=== PATIENT | female | born 1995 | race Caucasian/White ===

== ENCOUNTER 2021-03-26 10:19 | Inpatient (IN) ==
[2021-03-26] MEDS ORDERED: Famotidine 20 MG/2 ML VIAL IVP PRN (10:20)
[2021-03-26] MEDS ORDERED: Ondansetron 4 MG/2 ML VIAL IVP PRN ×2 (10:20→20:26)
[2021-03-26] MEDS ORDERED: Metoclopramide 10 MG/2 ML VIAL IVP PRN (10:20)
[2021-03-26] MEDS ORDERED: Naloxone 0.4 MG/ML INJ IVP PRN (10:20)
[2021-03-26] MEDS ORDERED: *HR* Nalbuphine 10 MG/ML AMPUL IV PRN (10:20)
[2021-03-26] MEDS ORDERED: Penicillin G Potassium 5,000,000 UNIT in 0.9 % Sodium Chloride Mini Bag 100 ML IVPB ONE (10:22)
[2021-03-26] MEDS ORDERED: Ringers Solution, Lactated 1,000 ML ONE (10:30)
[2021-03-26 10:58] LABS: Basophils % 0.2 %; Eosinophils # 0.1 K/mcL (0.0-0.6); Eosinophils % 0.3 %; Hemoglobin 11.4 g/dL (11.5-15.4); Immature Granulocytes % 0.7 % (0-4); Lymphocytes # 1.7 K/mcL (0.6-4.6); Lymphocytes % 9.5 %; Mean Corpuscular HGB Conc 32.6 g/dL (31.6-35.5); Mean Corpuscular Hemoglobin 27.9 pg (28.0-33.3); Mean Corpuscular Volume 85.6 fL (83.0-100.0); Mean Platelet Volume 10.5 fL (9.4-12.4); Monocytes # 1.2 K/mcL (0.0-1.3); Monocytes % 7.1 %; Neutrophils # 14.3 K/mcL (1.6-8.9); Platelet Count 254 K/mcL (140-400); Red Blood Count 4.09 M/mcL (3.82-4.97); Red Cell Distribution Width 14.3 % (11.5-14.5); Segmented Neutrophils % 82.2 %; White Blood Count 17.4 K/mcL (4.3-11.1)
[2021-03-26] MEDS: Ringers Solution, Lactated 1,000 ML IVC SCH ×2 (11:09→15:44)
[2021-03-26] MEDS ORDERED: EPHEDrine 50 MG/ML VIAL IVP PRN (12:11)
[2021-03-26] MEDS ORDERED: *HR* FentaNYL (PF) 100 MCG/2 ML VIAL EP ONE (12:11)
[2021-03-26] MEDS ORDERED: Ropivacaine/PF 0.2% 20 ML VIAL EP ONE (12:11)
[2021-03-26] MEDS ORDERED: Epidural Premix (fent/bupiv) 110 ML EP SCH (12:15)
[2021-03-26] MEDS ORDERED: *HR* FentaNYL (PF) 100 MCG/2 ML VIAL ONE (12:25)
[2021-03-26] MEDS ORDERED: Ropivacaine/PF 0.2% 20 ML VIAL ONE (12:25)
[2021-03-26 13:06] LABS: Amphetamine Screen,Urine Negative ng/mL (Cutoff=1000); Barbiturate Screen,Urine Negative ng/mL (Cutoff=200); Benzodiazepines Screen,Urine Negative ng/mL (Cutoff=200); Cannabinoid Screen,Urine Positive ng/mL (Cutoff = 50); Cocaine Screen,Urine Negative ng/mL (Cutoff= 300); Opiate Screen,Urine Negative ng/mL (Cutoff=300); Phencyclidine Screen,Urine Negative ng/mL (Cutoff=25)
[2021-03-26] MEDS ORDERED: Methylergonovine 0.2 MG/ML AMPUL IM ONE ×2 (14:08→18:03)
[2021-03-26] MEDS ORDERED: Penicillin G Potassium 2,500,000 UNIT/105 ML MLS IVPB SCH (14:30)
[2021-03-26] MEDS ORDERED: Oxytocin 20 units/ LR 1000 mL 20 UNIT/1,000 ML BAG IVC ONE ×2 (16:45→19:24)
[2021-03-26] MEDS ORDERED: Ibuprofen 600 MG TABLET PO PRN (18:04)
[2021-03-26] MEDS ORDERED: Ondansetron 4 MG/2 ML VIAL ONE (20:29)
[2021-03-26] MEDS ORDERED: Benzocaine/Menthol 56 GM AEROSOL SPRAY TP PRN (20:30)
[2021-03-27] MEDS ORDERED: Acetaminophen 325 MG TABLET PO SCH
[2021-03-27] MEDS: Ibuprofen 600 MG TABLET PO SCH ×2 (04:26→08:56)
[2021-03-27 08:28] VITALS: BP 114/78; PULSE 83; TEMP 97.9; O2SAT 100
[2021-03-27] MEDS ORDERED: Prenatal Vit/FA 1 EACH TABLET PO SCH (09:00)
== END 2021-03-27 14:09 | disposition home or self-care (01) | DRG 560 ==
LOC: 1NENULAB → OBSVTOIN 10:19 → 1NENUOBS 20:35
PROVIDERS: ADMIT Advanced Practice Midwife; ATTEND Advanced Practice Midwife

== ENCOUNTER 2021-08-16 14:02 | Observation (INO) ==
[2021-08-16] MEDS ORDERED: 0.9 % Sodium Chloride 1,000 ML IVC ONE ×2 (15:08→16:38)
[2021-08-16 15:10] LABS: Bacteria,Urine Few per hpf (None-Few); Bilirubin,Urine Moderate (Negative); Blood,Urine Negative (Negative); Clarity,Urine Turbid (Clear); Color,Urine Dark-Yellow (Yellow); Glucose,Urine (UA) Normal (Normal); Ketones,Urine Negative (Negative); Leukocyte Esterase,Urine Trace (Negative); Mucus,Urine Few per lpf (None-Few); Nitrite,Urine Negative (Negative); PH,Urine 6.5 pH Units (5.0-8.0); Protein,Urine 30 mg/dL (Neg-Trace); Specific Gravity,Urine 1.027 (1.010-1.025); Squamous Epithelial Cell,Urine Many per hpf (None-Few)
[2021-08-16 15:14] LABS: Basophils % 0.4 %; Eosinophils # 0.2 K/mcL (0.0-0.6); Eosinophils % 1.9 %; Hematocrit 40.3 % (35.3-44.9); Hemoglobin 12.6 g/dL (11.5-15.4); Immature Granulocytes % 0.3 % (0-4); Lymphocytes # 1.4 K/mcL (0.6-4.6); Lymphocytes % 18.2 %; Mean Corpuscular HGB Conc 31.3 g/dL (31.6-35.5); Mean Corpuscular Hemoglobin 25.7 pg (28.0-33.3); Mean Corpuscular Volume 82.2 fL (83.0-100.0); Monocytes # 0.5 K/mcL (0.0-1.3); Monocytes % 6.5 %; Neutrophils # 5.7 K/mcL (1.6-8.9); Platelet Count 231 K/mcL (140-400); Segmented Neutrophils % 72.7 %; White Blood Count 7.9 K/mcL (4.3-11.1)
[2021-08-16] MEDS ORDERED: Isovue-370 500 ML BOTTLE IVP ONE (15:47)
[2021-08-16 16:19] LABS: Alanine Aminotransferase 356 Units/L (7-52); Albumin 4.4 g/dL (3.5-5.7); Albumin/Globulin Ratio 1.6 (1.1-2.2); Alkaline Phosphatase 154 Units/L (34-104); Amylase 1455 Units/L (29-103); Aspartate Amino Transferase 289 Units/L (13-39); BUN/Creatinine Ratio 8 (6-26); Bilirubin,Direct 1.3 mg/dL (0.0-0.2); Bilirubin,Indirect 1.4 mg/dL (0.0-1.0); Bilirubin,Total 2.7 mg/dL (0.3-1.0); Blood Urea Nitrogen 7 mg/dL (6-20); Calcium 9.2 mg/dL (8.6-10.3); Carbon Dioxide 24 mEq/L (23-29); Chloride 104 mEq/L (98-107); Globulin 2.7 g/dL (2.4-3.5); Glucose 99 mg/dL (70-105); Lipase > 1800 Units/L (11-82); Osmolality,Calculated 282 (280-300); Potassium 3.8 mEq/L (3.5-5.1); Sodium 137 mEq/L (136-145); Total Protein 7.1 g/dL (6.4-8.9); Troponin I < 0.03 ng/mL (< 0.04); eGFR For African Americans > 60 (> 60); eGFR For Non-African Americans > 60 (> 60)
[2021-08-16] MEDS ORDERED: *HR* FentaNYL (PF) 100 MCG/2 ML VIAL IVP ONE (16:56)
[2021-08-16] MEDS ORDERED: Acetaminophen 325 MG TABLET PO PRN (17:37)
[2021-08-16] MEDS ORDERED: Naloxone 0.4 MG/ML INJ IVP PRN (17:37)
[2021-08-16] MEDS ORDERED: Ondansetron 4 MG/2 ML VIAL IVP PRN (17:37)
[2021-08-16] MEDS ORDERED: *HR* HYDROmorphone (PF) 1 MG/ML SYRINGE IVP PRN (17:40)
[2021-08-16] MEDS: Ringers Solution, Lactated 1,000 ML IVC SCH (19:31)
[2021-08-17] MEDS: Ringers Solution, Lactated 1,000 ML IVC SCH (06:00)
[2021-08-17 06:16] LABS: Alanine Aminotransferase 195 Units/L (7-52); Albumin 3.5 g/dL (3.5-5.7); Albumin/Globulin Ratio 1.8 (1.1-2.2); Alkaline Phosphatase 116 Units/L (34-104); Aspartate Amino Transferase 82 Units/L (13-39); BUN/Creatinine Ratio 10 (6-26); Bilirubin,Total 1.1 mg/dL (0.3-1.0); Blood Urea Nitrogen 8 mg/dL (6-20); Calcium 8.5 mg/dL (8.6-10.3); Carbon Dioxide 25 mEq/L (23-29); Chloride 107 mEq/L (98-107); Chol/HDL Ratio 3.9 (0-4.9); Cholesterol 142 mg/dL (< 200); Glucose 73 mg/dL (70-105); HDL Cholesterol 36 mg/dL (40-59); LDL Cholesterol,Calculated 91 mg/dL (< 100); Magnesium 1.7 mg/dL (1.6-2.6); Osmolality,Calculated 281 (280-300); Phosphorous 3.4 mg/dL (2.7-4.5); Potassium 3.6 mEq/L (3.5-5.1); Sodium 137 mEq/L (136-145); Total Protein 5.5 g/dL (6.4-8.9); Triglycerides 75 mg/dL (< 150); eGFR For African Americans > 60 (> 60); eGFR For Non-African Americans > 60 (> 60)
[2021-08-17 06:34] LABS: Hematocrit 34.1 % (35.3-44.9); Mean Corpuscular HGB Conc 30.8 g/dL (31.6-35.5); Mean Corpuscular Hemoglobin 25.7 pg (28.0-33.3); Mean Corpuscular Volume 83.4 fL (83.0-100.0); Mean Platelet Volume 12.6 fL (9.4-12.4); Platelet Count 180 K/mcL (140-400); Red Blood Count 4.09 M/mcL (3.82-4.97); Red Cell Distribution Width 15.4 % (11.5-14.5); White Blood Count 9.9 K/mcL (4.3-11.1)
[2021-08-17 06:53] LABS: Hemoglobin 10.5 g/dL (11.5-15.4)
[2021-08-17] MEDS ORDERED: *HR* Dextrose 50 % in Water (Syg) 50 ML SYRINGE IVP PRN ×2 (07:55→13:25)
[2021-08-17] MEDS ORDERED: Dextrose 4 GM Chewable Tablets PO PRN ×4 (07:55→13:25)
[2021-08-17] MEDS ORDERED: D5% in Water 1,000 ML IVC PRN ×2 (07:55→13:25)
[2021-08-17] MEDS ORDERED: *HR* FentaNYL (PF) 100 MCG/2 ML VIAL ONE (09:51)
[2021-08-17] MEDS ORDERED: *HR* Propofol 200 MG/20 ML VIAL IVP ONE (09:51)
[2021-08-17] MEDS ORDERED: Lidocaine -MPF 2% 2 ML VIAL ONE (09:51)
[2021-08-17] MEDS ORDERED: *HR* Midazolam HCl 2 MG/2 ML VIAL ONE (09:51)
[2021-08-17] MEDS ORDERED: Lidocaine HCL 4 ML Topical Solution (Laryng-O-Jet Kit Sterile Pak) TP ONE (09:51)
[2021-08-17] MEDS ORDERED: Sugammadex Sodium 200 MG/2 ML VIAL IV ONE (09:51)
[2021-08-17] MEDS ORDERED: *HR* Rocuronium Bromide 50 MG/5 ML VIAL ONE (09:51)
[2021-08-17] MEDS ORDERED: Ondansetron 4 MG/2 ML VIAL ONE (09:51)
[2021-08-17] MEDS ORDERED: *HR* Succinylcholine 200 MG/10 ML VIAL IVP ONE (09:51)
[2021-08-17] MEDS ORDERED: *HR* HYDROMORPHONE 2 MG/ML VIAL ONE (09:51)
[2021-08-17] MEDS ORDERED: Isovue-300 50ML VIAL ONE (10:08)
[2021-08-17] MEDS ORDERED: Ondansetron 4 MG/2 ML VIAL IVP PRN ×3 (10:45→13:25)
[2021-08-17] MEDS ORDERED: *HR* HYDROmorphone PF 0.5 MG/0.5 ML SYRINGE IVP PRN ×2 (10:45→13:25)
[2021-08-17] MEDS ORDERED: *HR* OxyCODONE Immed Rel 5 MG TABLET PO PRN ×2 (10:45→13:25)
[2021-08-17] MEDS ORDERED: Promethazine 6.25 MG in Water for inj. (sterile) 20 ML IVPB PRN ×2 (10:45→13:25)
[2021-08-17] MEDS ORDERED: Acetaminophen IV 1,000 MG/100 ML BAG IVPB ONE (11:10)
[2021-08-17] MEDS ORDERED: ceFAZolin 2,000 MG in Water for inj. (sterile) 20 ML IVP ONE (11:15)
[2021-08-17] MEDS ORDERED: Insulin LISPRO 300 UNITS/3 ML VIAL SUBQ SCH (12:00)
[2021-08-17] MEDS ORDERED: Naloxone 0.4 MG/ML INJ IVP PRN (13:25)
[2021-08-17] MEDS ORDERED: Ringers Solution, Lactated 1,000 ML IVC SCH ×2 (13:25→16:00)
[2021-08-17] MEDS ORDERED: *HR* HYDROmorphone (PF) 1 MG/ML SYRINGE IVP PRN (13:25)
[2021-08-17] MEDS: Insulin LISPRO 300 UNITS/3 ML VIAL SUBQ SCH (18:20)
[2021-08-18] MEDS: Acetaminophen 325 MG TABLET PO PRN ×2 (01:37→09:33)
[2021-08-18] MEDS: Insulin LISPRO 300 UNITS/3 ML VIAL SUBQ SCH ×2 (01:38→04:48)
[2021-08-18 06:29] VITALS: BP 103/62; PULSE 68; TEMP 97.9; O2SAT 97
[2021-08-18 08:35] LABS: Basophils % 0.1 %; Eosinophils % 0.4 %; Hematocrit 34.2 % (35.3-44.9); Immature Granulocytes % 0.3 % (0-4); Lymphocytes # 2.2 K/mcL (0.6-4.6); Lymphocytes % 19.7 %; Mean Corpuscular HGB Conc 32.2 g/dL (31.6-35.5); Mean Corpuscular Volume 80.9 fL (83.0-100.0); Mean Platelet Volume 11.8 fL (9.4-12.4); Monocytes # 0.8 K/mcL (0.0-1.3); Monocytes % 7.3 %; Platelet Count 188 K/mcL (140-400); Red Blood Count 4.23 M/mcL (3.82-4.97); Segmented Neutrophils % 72.2 %; White Blood Count 11.1 K/mcL (4.3-11.1)
[2021-08-18 08:48] LABS: Alanine Aminotransferase 119 Units/L (7-52); Albumin 3.6 g/dL (3.5-5.7); Albumin/Globulin Ratio 1.5 (1.1-2.2); Alkaline Phosphatase 104 Units/L (34-104); Amylase 110 Units/L (29-103); Aspartate Amino Transferase 33 Units/L (13-39); BUN/Creatinine Ratio 8 (6-26); Bilirubin,Direct 0.2 mg/dL (0.0-0.2); Bilirubin,Indirect 0.7 mg/dL (0.0-1.0); Bilirubin,Total 0.9 mg/dL (0.3-1.0); Blood Urea Nitrogen 6 mg/dL (6-20); Calcium 8.9 mg/dL (8.6-10.3); Carbon Dioxide 25 mEq/L (23-29); Chloride 104 mEq/L (98-107); Globulin 2.4 g/dL (2.4-3.5); Glucose 83 mg/dL (70-105); Lipase 42 Units/L (11-82); Osmolality,Calculated 277 (280-300); Sodium 135 mEq/L (136-145); eGFR For African Americans > 60 (> 60); eGFR For Non-African Americans > 60 (> 60)
[2021-08-18] MEDS ORDERED: Pantoprazole 40 MG VIAL IVP SCH (09:00)
[2021-08-18 10:01] LABS: Amylase 500 Units/L (29-103); Lipase 702 Units/L (11-82)
== END 2021-08-18 11:53 | disposition home or self-care (01) ==
LOC: EMEROOARM 14:02 → 3BNU 14:02 → SUATTDRO 18:05 → 3BNU 18:46
PROVIDERS: ADMIT Internal Medicine; ATTEND Internal Medicine